=== PATIENT | male | born 1965 | race Caucasian/White ===

== ENCOUNTER → 2017-01-01 | Outpatient (CLI) | payer BC ==
--- NOTE | 2017-01-01 09:16 | RAD ---
Chest, 2 views, 01/01/2017: History: Chest pain with shortness of breath The heart size and pulmonary vascularity are normal. No pulmonary infiltrates are seen. There is no evidence of pleural fluid. Mild spurring is present in the spine. IMPRESSION: No acute cardiopulmonary abnormality is detected.
== END | disposition home or self-care (01) ==
LOC: DXRADRC 08:05
PROVIDERS: ATTEND Physician Assistant Medical
DX: R07.9 Chest pain, unspecified (principal); R06.02 Shortness of breath
CPT/HCPCS: 71020

== ENCOUNTER → 2017-01-02 | Outpatient (CLI) | payer BC ==
--- NOTE | 2017-01-02 10:27 | RAD ---
Limited ultrasound abdomen 01/02/2017 at 0805 hours Indication: Sternal pain with right upper quadrant tenderness Comparison: None available Technique: Sonographic imaging of the abdomen with attention to the right upper quadrant was performed. Grayscale sonographic imaging was utilized. Findings: The liver is normal in echotexture measuring 18.4 cm in maximal dimension. No intrahepatic or extrahepatic biliary ductal dilatation is present. Hepatopedal flow is identified in the portal veins. Gallbladder is normal in appearance. No gallstones, gallbladder wall thickening or pericholecystic fluid is identified. Negative sonographic Cline sign. Common bile duct measures 4 mm. The right kidney measures 10.5 x 5.9 x 5.9 cm. There is normal corticomedullary differentiation. No contour deforming renal mass, renal calculi or hydronephrosis. Pancreas is poorly visualized due to overlying bowel gas, however visualized portions of the body appear normal. IVC is normal. Impression: No sonographic evidence for cholelithiasis or acute cholecystitis.
== END | disposition home or self-care (01) ==
LOC: US 07:44
PROVIDERS: ATTEND Physician Assistant Medical
DX: R07.81 Pleurodynia (principal); R10.811 Right upper quadrant abdominal tenderness
CPT/HCPCS: 76705

== ENCOUNTER → 2017-01-10 | Outpatient (CLI) | payer BC ==
--- NOTE | 2017-01-10 10:15 | RAD ---
INDICATION:NMGASE/ABD PAIN COMPARISON: None. FINDINGS: 2 mCi of technetium 99m sulfur colloid Administered orally followed by scintigraphic images of the abdomen. The time to half emptying for solids is approximately 123 minutes. IMPRESSION: Time to half emptying for solids of 123 minutes which is mildly delayed.
== END | disposition home or self-care (01) ==
LOC: NM 07:32
PROVIDERS: ATTEND Internal Medicine Gastroenterology
DX: R10.9 Unspecified abdominal pain (principal); K30 Functional dyspepsia; I10 Essential (primary) hypertension
CPT/HCPCS: 78264; A9541

== ENCOUNTER → 2020-08-17 | Outpatient (CLI) | payer BC ==
--- NOTE | 2020-08-17 09:15 | RAD ---
XR CHEST 2V History: Reason: CHEST PAIN. FEVER. / Spl. Instructions: / History: Comparison: January 01, 2017 Findings: Patchy right upper lung opacity. Linear bibasilar opacities. Low lung volumes. No pleural effusion. N o pneumothorax. 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 Impression: 1. Patchy right upper lung opacity, concerning for pneumonia. Recommend follow-up to ensure resoluti on. Electronically signed by: Kike Brady DO (08/17/2020 9:13 AM) [id number]
== END ==
LOC: PMG 08:24
PROVIDERS: ATTEND Nurse Practitioner Family
DX: R91.1 Solitary pulmonary nodule (principal); J22 Unspecified acute lower respiratory infection; R50.9 Fever, unspecified
CPT/HCPCS: 71046